=== PATIENT | female | born 1965 | race Caucasian/White ===

== ENCOUNTER 2020-04-24 18:40 | Emergency (ER) | payer OTHER ==
[~2020-04-24] VITALS: Ht 167.6 cm; Wt 70.3 kg
[2020-04-24] MEDS ORDERED: BENTYL 10 MG CA10 M1 PO (18:50)
[2020-04-24] MEDS ORDERED: OMEPRAZOLE20 M2 PO (18:51)
[2020-04-24] MEDS ORDERED: XANAX1 MG PO (18:51)
[2020-04-24 20:06] LABS: ABSOLUTE BASOPHILS 0.1 thou/uL (0.0-0.2); ABSOLUTE EOSINOPHILS 0.1 thou/uL (0.0-0.7); ABSOLUTE LYMPHOCYTES 2.1 thou/uL (0.8-5.3); ABSOLUTE MONOCYTES 0.5 thou/uL (0.0-1.2); ABSOLUTE NEUTROPHILS 6.8 thou/uL (1.6-8.1); BASOPHILS 0.6 %; EOSINOPHILS 1.3 %; HEMATOCRIT 41.2 % (37.0-47.0); HEMOGLOBIN 14.4 gm/dL (12.0-15.0); LYMPHOCYTES 21.7 %; MCH 33.4 pg (26.0-34.0); MCV 95.3 fL (80.0-100.0); MONOCYTES 4.9 %; MPV 9.3 fl. (7.2-11.1); NUCLEATED RBCS 0 /100WBC; PLATELET COUNT* 219 thou/uL (150-400); POLYS 71.5 %; RBC 4.32 mil/uL (4.20-5.00); RDW-CV 13.3 % (10.5-14.5); WBC 9.5 thou/uL (4.0-11.0)
[2020-04-24 20:10] LABS: CREATININE 1.1 mg/dL (0.6-1.3); POTASSIUM 3.8 mmol/L (3.5-5.1)
[2020-04-24 20:15] LABS: ALBUMIN 3.8 g/dL (3.4-5.0); TOTAL BILIRUBIN 0.2 mg/dL (<0.1-1.0); TOTAL PROTEIN 7.2 g/dL (6.4-8.2)
[2020-04-24 20:57] LABS: URINE BILIRUBIN NEGATIVE (Negative); URINE BLOOD TRACE (Negative); URINE CLARITY CLEAR; URINE COLOR STRAW; URINE GLUCOSE-RANDOM NEGATIVE (Negative); URINE KETONES NEGATIVE (Negative); URINE NITRITE-REFLEX NEGATIVE (Negative); URINE PROTEIN NEGATIVE (Negative); URINE UROBILINOGEN 0.2 E.U./dl (0.2-1.0)
[2020-04-24 20:58] LABS: URINE LEUKOCYTES-REFLEX 3+ (Negative)
[2020-04-24 21:20] LABS: SQUAMOUS >10 Many /LPF (0-3)
[2020-04-24 21:21] LABS: CASTS None Seen /LPF (None Seen); URINE WBC-REFLEX 6-15 Few /HPF (0-5)
[2020-04-24 21:22] LABS: BACTERIA-REFLEX 1-9 Few /HPF (None Seen); CRYSTALS None Seen /LPF (None Seen); URINE RBC 0-2 Rare /HPF (0-2)
[2020-04-24] MEDS ORDERED: BUTALB-APAP-CA1 EACH PO (21:44)
[2020-04-24] MEDS ORDERED: MACROBID 100 M100 M1 PO (21:44)
[2020-04-24] MEDS ORDERED: 12 HOUR DECONG120 MG PO (21:44)
[2020-04-24 21:55] VITALS: BP 144/68
--- NOTE | 2020-04-25 15:39 | EKG ---
[place] [address] ELECTROCARDIOGRAM REPORT Name: WENDY RICO Room: [facility]#: [id number] Admission: 04/24/20 Attend Phys: Discharge: 04/24/20 Date of : 67 Date of Service: 04/24/201943 Report #: [id number] THIS REPORT FOR: //name// [facility] ED Test Date: 2020-04-24 Test Time: 19:44:19 Pat Name: WENDY RICO Department: Room: Gender: Manager Diesel: : 1965 Requested By: Tonia Kearns Order Number: [id number] MD: Alex Kebede Measurements Intervals [place] Rate: 68 P: 60 NE: 115 QRS: 42 QRSD: 82 T: 8 QT: 380 QTc: 405 Interpretive Statements Sinus rhythm Borderline short NE interval No previous ECG available for comparison Electronically Signed On 04-25-2020 15:39:26 CDT by Alex Kebede [email or web address] <ELECTRONICALLY SIGNED> By: Alex Kebede MD, [facility] 04/25/20 [id number] Alex Kebede MD, FACC /EPI
== END 2020-04-24 21:55 | disposition home or self-care (01) ==
LOC: M.ERS 18:40
PROVIDERS: Personal Emergency Response Attendant
DX: N39.0 Urinary tract infection, site not specified (principal); R51 Headache; R42 Dizziness and giddiness; Z91.018 Allergy to other foods

== ENCOUNTER 2021-04-20 04:06 | Emergency (ER) | payer OTHER ==
[~2021-04-20] VITALS: Ht 167.6 cm; Wt 75.8 kg
[~2021-04-20 04:06] MED LIST: 12 HOUR DECONG120 MG PO; BENTYL 10 MG CA10 M1 PO; BUTALB-APAP-CA1 EACH PO; MACROBID 100 M100 M1 PO; OMEPRAZOLE20 M2 PO; XANAX1 MG PO
[2021-04-20 04:55] LABS: ABSOLUTE EOSINOPHILS 0.2 thou/uL (0.0-0.7); ABSOLUTE LYMPHOCYTES 3.6 thou/uL (0.8-5.3); ABSOLUTE MONOCYTES 0.6 thou/uL (0.0-1.2); BASOPHILS 0.4 %; EOSINOPHILS 2.4 %; HEMATOCRIT 38.9 % (37.0-47.0); HEMOGLOBIN 13.8 gm/dL (12.0-15.0); LYMPHOCYTES 38.1 %; MCH 33.5 pg (26.0-34.0); MCHC 35.4 g/dL (28.0-37.0); MCV 94.6 fL (80.0-100.0); MONOCYTES 6.8 %; MPV 8.4 fl. (7.2-11.1); NUCLEATED RBCS 0 /100WBC; PLATELET COUNT* 232 thou/uL (150-400); POLYS 52.3 %; RBC 4.12 mil/uL (4.20-5.00); RDW-CV 13.7 % (10.5-14.5); WBC 9.6 thou/uL (4.0-11.0)
[2021-04-20 05:03] LABS: URINE BILIRUBIN NEGATIVE (Negative); URINE BLOOD TRACE (Negative); URINE COLOR YELLOW; URINE GLUCOSE-RANDOM NEGATIVE (Negative); URINE KETONES NEGATIVE (Negative); URINE LEUKOCYTES-REFLEX TRACE (Negative); URINE NITRITE-REFLEX NEGATIVE (Negative); URINE PROTEIN NEGATIVE (Negative); URINE UROBILINOGEN 0.2 E.U./dl (0.2-1.0)
[2021-04-20 05:05] LABS: URINE CLARITY SL HAZY
[2021-04-20 05:14] LABS: CALCIUM 9.1 mg/dL (8.5-10.1); CREATININE 0.9 mg/dL (0.6-1.3); POTASSIUM 3.9 mmol/L (3.5-5.1)
[2021-04-20 05:25] LABS: ALBUMIN 3.5 g/dL (3.4-5.0); TOTAL BILIRUBIN 0.2 mg/dL (<0.1-1.0); TOTAL PROTEIN 6.6 g/dL (6.4-8.2)
[2021-04-20 06:16] LABS: BACTERIA-REFLEX >30 Many /HPF (None Seen); CASTS None Seen /LPF (None Seen); MUCUS 4-6 Moderate strn/LPF (None Seen); SQUAMOUS 0-3 Few /LPF (0-3); URINE RBC 3-10 Few /HPF (0-2); URINE WBC-REFLEX 0-5 Rare /HPF (0-5)
[2021-04-20 06:17] LABS: CRYSTALS None Seen /LPF (None Seen)
[2021-04-20 07:30] VITALS: BP 144/83
--- NOTE | 2021-04-20 11:43 | EKG ---
[place] [address] ELECTROCARDIOGRAM REPORT Name: WENDY CENTENO Room: [facility]#: [id number] Admission: 04/20/21 Attend Phys: Discharge: 04/20/21 Date of : 67 Date of Service: 04/20/21 0406 Report #: [id number] THIS REPORT FOR: //name// [facility] ED Test Date: 2021-04-20 Test Time: 04:06:33 Pat Name: WENDY WARD Department: Room: Gender: F Portable Track Line Marker: : 1965 Requested By: Maureen Humphries Order Number: [id number] MD: Sebastian Vasquez Measurements Intervals [place] Rate: 88 P: 56 RI: 117 QRS: 50 QRSD: 77 T: 42 QT: 335 QTc: 406 Interpretive Statements Sinus rhythm Borderline short RI interval Probable left atrial enlargement Minimal ST depression, diffuse leads Compared to ECG 04/24/2020 19:44:19 ST (T wave) deviation now present Electronically Signed On 04-20-2021 11:43:08 CDT by Sebastian Vasquez [email or web address] <ELECTRONICALLY SIGNED> By: Sebastian Vasquez MD, [facility] 04/20/21 1143 [id number] Sebastian Vasquez MD, [facility] /EPI
== END 2021-04-20 07:30 | disposition home or self-care (01) ==
LOC: M.ERS 04:06
PROVIDERS: Emergency Medicine
DX: M54.5 Low back pain (principal); R07.89 Other chest pain; Z79.899 Other long term (current) drug therapy; Z98.890 Other specified postprocedural states